=== PATIENT | male | born 1955 | race Caucasian/White ===

== ENCOUNTER 2018-07-14 13:11 | Emergency (ER) | payer SELFPAY ==
[~2018-07-14] VITALS: Ht 188 cm; Wt 134.7 kg
[2018-07-14] MEDS ORDERED: ARIP20 PO (13:18)
[2018-07-14] MEDS ORDERED: ALBU90OI INH (13:18)
[2018-07-14] MEDS ORDERED: AMLO5 PO (13:18)
[2018-07-14] MEDS ORDERED: ATOR20 PO (13:19)
[2018-07-14] MEDS ORDERED: CHOL10002 (13:19)
[2018-07-14] MEDS ORDERED: DOCU100 PO (13:20)
[2018-07-14] MEDS ORDERED: CYAN500 PO (13:20)
[2018-07-14] MEDS ORDERED: ESZO3 PO (13:20)
[2018-07-14] MEDS ORDERED: Fish Oil 10001000 MG PO (13:21)
[2018-07-14] MEDS ORDERED: FINA5 PO (13:21)
[2018-07-14] MEDS ORDERED: Flovent Diskus50 MCG IH (13:22)
[2018-07-14] MEDS ORDERED: Norco 10-325 T1 EACH PO (13:22)
[2018-07-14] MEDS ORDERED: HYDHCL25 PO (13:23)
[2018-07-14] MEDS ORDERED: MELA3 PO (13:23)
[2018-07-14] MEDS ORDERED: Glucophage1000 MG PO (13:24)
[2018-07-14] MEDS ORDERED: MONT10T PO (13:24)
[2018-07-14] MEDS ORDERED: Hair, Skin & N1 EACH PO (13:24)
[2018-07-14] MEDS ORDERED: PYRI100 PO (13:25)
[2018-07-14] MEDS ORDERED: TAMS.4ER PO (13:25)
[2018-07-14] MEDS ORDERED: PREG150 PO (13:25)
[2018-07-14] MEDS ORDERED: THIA100 PO (13:38)
[2018-07-14] MEDS ORDERED: TIOT18 INH (13:38)
[2018-07-14] MEDS ORDERED: HYDR1TAB94 PO (16:03)
[2018-07-14] MEDS ORDERED: ONDA4ODT MM (16:03)
== END 2018-07-14 16:16 | disposition home or self-care (01) ==
LOC: ER 13:11
DX: R10.11 Right upper quadrant pain (principal); I10 Essential (primary) hypertension; J44.9 Chronic obstructive pulmonary disease, unspecified; E11.9 Type 2 diabetes mellitus without complications; F43.10 Post-traumatic stress disorder, unspecified; F31.9 Bipolar disorder, unspecified; Z87.891 Personal history of nicotine dependence; Z79.899 Other long term (current) drug therapy; Z79.84 Long term (current) use of oral hypoglycemic drugs
CPT/HCPCS: 76705; 94640; 96374; 99284-25; J1170